=== PATIENT | female | born 1960 | race Caucasian/White ===

== ENCOUNTER 2022-06-13 01:22 | Inpatient (IN) ==
[2022-06-13 02:16] LABS: Mean Corpuscular Volume 83.1 fL (83.0-100.0); Mean Platelet Volume 9.6 fL (9.4-12.4)
[2022-06-13 02:17] LABS: Hematocrit 39.8 % (35.3-44.9); Mean Corpuscular HGB Conc 32.7 g/dL (31.6-35.5); Mean Corpuscular Hemoglobin 27.1 pg (28.0-33.3); Platelet Count 592 K/mcL (140-400); Red Blood Count 4.79 M/mcL (3.82-4.97); Red Cell Distribution Width 13.8 % (11.5-14.5)
[2022-06-13] MEDS ORDERED: Iopamidol - 370 500 ML MLS IVP ONE (02:17)
[2022-06-13 02:22] LABS: White Blood Count 34.5 K/mcL (4.3-11.1)
[2022-06-13] MEDS ORDERED: Azithromycin 500 MG in 0.9 % Sodium Chloride 250 ML IVPB ONE (02:24)
[2022-06-13] MEDS ORDERED: cefTRIAXone 2,000 MG in 0.9 % Sodium Chloride 20 ML IVP ONE (02:24)
[2022-06-13] MEDS ORDERED: *HR* FentaNYL (PF) 100 MCG/2 ML VIAL IVP ONE (02:31)
[2022-06-13 02:35] LABS: Eosinophils # 0.4 K/mcL (0.0-0.6); Lymphocytes # 2.1 K/mcL (0.6-4.6); Monocytes # 1.4 K/mcL (0.0-1.3); Neutrophils # 30.7 K/mcL (1.6-8.9)
[2022-06-13 02:36] LABS: Platelet Estimate Increased (Normal)
[2022-06-13] MEDS: 0.9 % Sodium Chloride 1,000 ML IVC SCH ×3 (02:36→05:47)
[2022-06-13 02:37] LABS: Albumin/Globulin Ratio 0.8 (1.1-2.2); Calcium 9.4 mg/dL (8.6-10.3); Globulin 3.6 g/dL (2.4-3.5); Potassium 3.4 mEq/L (3.5-5.1); Total Protein 6.6 g/dL (6.4-8.9); Troponin I 0.03 ng/mL (< 0.04)
[2022-06-13 02:41] LABS: INR 1.3; Prothrombin Time 14.5 Seconds (9.4-12.1)
[2022-06-13 02:43] LABS: Bilirubin,Direct 0.4 mg/dL (0.0-0.2); Bilirubin,Indirect 0.6 mg/dL (0.0-1.0); Magnesium 1.6 mg/dL (1.6-2.6)
[2022-06-13 02:44] LABS: Activated Partial Thrombo Time 26.3 Seconds (26.0-36.0)
[2022-06-13] MEDS ORDERED: Vancomycin 2,000 MG/520 ML IV.SOLN IVPB ONE (03:13)
[2022-06-13] MEDS ORDERED: Morphine Sulfate 2 MG/ML SYRINGE IVP ONE (04:16)
[2022-06-13 04:24] LABS: Bilirubin,Urine Negative (Negative); Blood,Urine Negative (Negative); Clarity,Urine Clear (Clear); Color,Urine Light-Orange (Yellow); Glucose,Urine (UA) Normal (Normal); Ketones,Urine Negative (Negative); Leukocyte Esterase,Urine Trace (Negative); Mucus,Urine Few per lpf (None-Few); Nitrite,Urine Negative (Negative); PH,Urine 6.5 pH Units (5.0-8.0); Protein,Urine 50 mg/dL (Neg-Trace); Specific Gravity,Urine > 1.030 (1.010-1.025); Squamous Epithelial Cell,Urine Moderate per hpf (None-Few); Urobilinogen,Urine Normal (Normal)
[2022-06-13 04:49] LABS: Adenovirus Not Detected (Not Detect); Bordetella Pertussis Not Detected (Not Detect); Chlamydophila pneumoniae Not Detected (Not Detect); Coronavirus 229E Not Detected (Not Detect); Coronavirus HKU1 Not Detected (Not Detect); Coronavirus NL63 Not Detected (Not Detect); Coronavirus OC43 Not Detected (Not Detect); Human Metapneumovirus Not Detected (Not Detect); Human Rhinovirus/Enterovirus Not Detected (Not Detect); Influenza A Subtype 2009 H1 Not Detected (Not Detect); Influenza B Not Detected (Not Detect); Mycoplasma pneumoniae Not Detected (Not Detect); Parainfluenza Virus 1 Not Detected (Not Detect); Parainfluenza Virus 2 Not Detected (Not Detect); Parainfluenza Virus 3 Not Detected (Not Detect); Parainfluenza Virus 4 Not Detected (Not Detect); Respiratory Syncytial Virus Not Detected (Not Detect); SARS-CoV-2 Not Detected (Not Detect)
[2022-06-13] MEDS ORDERED: MetroNIDAZOLE 500 MG/100 ML 500 MG/100 ML BAG IVPB ONE (05:19)
[2022-06-13] MEDS ORDERED: Naloxone 0.4 MG/ML INJ IVP PRN ×2 (05:22→18:45)
[2022-06-13] MEDS ORDERED: Melatonin 3 MG TABLET PO PRN ×2 (05:22→18:45)
[2022-06-13] MEDS ORDERED: Ondansetron 4 MG/2 ML VIAL IVP PRN ×5 (05:22→18:45)
[2022-06-13] MEDS ORDERED: Acetaminophen 325 MG TABLET PO PRN ×2 (06:00→18:45)
[2022-06-13] MEDS ORDERED: *HR* HYDROcodone/Acet 5/325 mg TABLET PO PRN (06:00)
[2022-06-13] MEDS ORDERED: Vancomycin 1,750 MG in 0.9 % Sodium Chloride 250 ML IVPB SCH (06:00)
[2022-06-13] MEDS ORDERED: *HR* OxyCODONE Immed Rel 5 MG TABLET PO PRN ×2 (06:00→18:45)
[2022-06-13] MEDS ORDERED: Gadolinium Contrast Agent (WT Based) IV PRN ×2 (07:27→18:45)
[2022-06-13] MEDS: Cefepime HCl 2,000 MG in 0.9 % Sodium Chloride 10 ML IVP SCH ×3 (08:32→23:22)
[2022-06-13] MEDS ORDERED: GADOBUTROL 30 MMOL/30 ML VIAL IVP ONE (09:43)
[2022-06-13] MEDS ORDERED: Ringers Solution, Lactated 1,000 ML IVC SCH ×2 (12:15→18:45)
[2022-06-13] MEDS: MetroNIDAZOLE 500 MG/100 ML 500 MG/100 ML BAG IVPB SCH ×4 (12:31→23:42)
[2022-06-13] MEDS ORDERED: *HR* HYDROmorphone PF 0.5 MG/0.5 ML SYRINGE IVP PRN ×2 (13:28→18:45)
[2022-06-13] MEDS ORDERED: Albuterol 2.5 MG/3 ML NEBULIZER IH PRN ×3 (13:28→18:45)
[2022-06-13] MEDS ORDERED: *HR* FentaNYL (PF) 100 MCG/2 ML VIAL IVP PRN ×2 (14:13→18:45)
[2022-06-13] MEDS ORDERED: *HR* FentaNYL (PF) 100 MCG/2 ML VIAL ONE ×2 (14:35→15:55)
[2022-06-13] MEDS ORDERED: *HR* Midazolam HCl 2 MG/2 ML VIAL ONE (14:35)
[2022-06-13] MEDS ORDERED: *HR* Propofol 200 MG/20 ML VIAL IVP ONE (14:35)
[2022-06-13] MEDS ORDERED: Ondansetron 4 MG/2 ML VIAL ONE (15:17)
[2022-06-13] MEDS ORDERED: Vancomycin 1,500 MG/265 ML IV.SOLN IVPB SCH (16:00)
[2022-06-13] MEDS ORDERED: DESMOPRESSIN ACETATE IVPB ONE ×2 (16:07→18:45)
[2022-06-13] MEDS ORDERED: SODIUM CHLORIDE 0.9% IVPB ONE ×2 (16:07→18:45)
[2022-06-13] MEDS ORDERED: Sugammadex Sodium 200 MG/2 ML VIAL IV ONE (16:34)
[2022-06-13] MEDS ORDERED: Promethazine 6.25 MG in Water for inj. (sterile) 20 ML IVPB PRN (17:28)
[2022-06-13] MEDS: Gabapentin 300 MG CAPSULE PO SCH (20:06)
[2022-06-13] MEDS: Vancomycin 1,500 MG/265 ML IV.SOLN IVPB SCH (20:08)
[2022-06-14] MEDS: Cefepime HCl 2,000 MG in 0.9 % Sodium Chloride 10 ML IVP SCH ×3 (02:42→20:48)
[2022-06-14] MEDS: MetroNIDAZOLE 500 MG/100 ML 500 MG/100 ML BAG IVPB SCH ×2 (05:46→11:39)
[2022-06-14] MEDS ORDERED: Azithromycin 500 MG in 0.9 % Sodium Chloride 250 ML IVPB SCH (06:00)
[2022-06-14 06:32] LABS: Basophils % 0.1 %; Eosinophils % 0.1 %; Hematocrit 26.5 % (35.3-44.9); Immature Granulocytes % 1.2 % (0-4); Lymphocytes # 1.3 K/mcL (0.6-4.6); Lymphocytes % 7.4 %; Mean Corpuscular HGB Conc 30.2 g/dL (31.6-35.5); Mean Corpuscular Hemoglobin 27.3 pg (28.0-33.3); Mean Platelet Volume 9.4 fL (9.4-12.4); Monocytes # 1.6 K/mcL (0.0-1.3); Monocytes % 9.3 %; Neutrophils # 14.1 K/mcL (1.6-8.9); Platelet Count 298 K/mcL (140-400); Red Blood Count 2.93 M/mcL (3.82-4.97); Red Cell Distribution Width 14.4 % (11.5-14.5); Segmented Neutrophils % 81.9 %; White Blood Count 17.3 K/mcL (4.3-11.1)
[2022-06-14 06:35] LABS: Mean Corpuscular Volume 90.4 fL (83.0-100.0)
[2022-06-14 07:23] LABS: Alanine Aminotransferase 14 Units/L (7-52); Albumin 1.6 g/dL (3.5-5.7); Albumin/Globulin Ratio 0.8 (1.1-2.2); Alkaline Phosphatase 45 Units/L (34-104); Aspartate Amino Transferase 8 Units/L (13-39); BUN/Creatinine Ratio 36 (6-26); Bilirubin,Total 0.3 mg/dL (0.3-1.0); Blood Urea Nitrogen 14 mg/dL (8-23); Calcium 5.9 mg/dL (8.6-10.3); Carbon Dioxide 19 mEq/L (23-29); Chloride 114 mEq/L (98-107); Glucose 85 mg/dL (70-105); Magnesium 1.3 mg/dL (1.6-2.6); Osmolality,Calculated 296 (280-300); Potassium 2.8 mEq/L (3.5-5.1); Sodium 143 mEq/L (136-145); Total Protein 3.6 g/dL (6.4-8.9)
[2022-06-14] MEDS: Gabapentin 300 MG CAPSULE PO SCH ×3 (08:16→20:48)
[2022-06-14] MEDS: Vancomycin 1,500 MG/265 ML IV.SOLN IVPB SCH (08:17)
[2022-06-14] MEDS ORDERED: Lidocaine -MPF 1% 5 ML AMPUL INFILT ONE (11:36)
[2022-06-14 13:07] LABS: BUN/Creatinine Ratio 27 (6-26); Blood Urea Nitrogen 16 mg/dL (8-23); Carbon Dioxide 26 mEq/L (23-29); Chloride 101 mEq/L (98-107); Glucose 112 mg/dL (70-105); Magnesium > 24.0 mg/dL (1.6-2.6); Osmolality,Calculated 274 (280-300); Phosphorous 2.9 mg/dL (2.7-4.5); Potassium 3.5 mEq/L (3.5-5.1); Sodium 131 mEq/L (136-145)
[2022-06-14] MEDS: *HR* HYDROcodone/Acet 5/325 mg TABLET PO PRN (15:52)
[2022-06-14 17:06] LABS: Alanine Aminotransferase 19 Units/L (7-52); Albumin 2.3 g/dL (3.5-5.7); Albumin/Globulin Ratio 0.7 (1.1-2.2); Alkaline Phosphatase 74 Units/L (34-104); Aspartate Amino Transferase 9 Units/L (13-39); BUN/Creatinine Ratio 28 (6-26); Bilirubin,Total 0.3 mg/dL (0.3-1.0); Blood Urea Nitrogen 16 mg/dL (8-23); Calcium 8.4 mg/dL (8.6-10.3); Carbon Dioxide 23 mEq/L (23-29); Chloride 103 mEq/L (98-107); Globulin 3.1 g/dL (2.4-3.5); Glucose 148 mg/dL (70-105); Osmolality,Calculated 278 (280-300); Potassium 3.7 mEq/L (3.5-5.1); Sodium 132 mEq/L (136-145); Total Protein 5.4 g/dL (6.4-8.9)
[2022-06-14] MEDS: metroNIDAZOLE 500 MG TABLET PO SCH (20:47)
[2022-06-14] MEDS: Lactobacillus 1 EACH CAP.SPRINK PO SCH (20:48)
[2022-06-15] MEDS: Cefepime HCl 2,000 MG in 0.9 % Sodium Chloride 10 ML IVP SCH ×3 (03:14→20:26)
[2022-06-15 03:43] LABS: Basophils % 0.2 %; Eosinophils # 0.4 K/mcL (0.0-0.6); Eosinophils % 2.2 %; Hemoglobin 9.1 g/dL (11.5-15.4); Immature Granulocytes % 1.3 % (0-4); Lymphocytes # 2.6 K/mcL (0.6-4.6); Lymphocytes % 14.4 %; Mean Corpuscular HGB Conc 31.4 g/dL (31.6-35.5); Mean Corpuscular Hemoglobin 27.4 pg (28.0-33.3); Mean Corpuscular Volume 87.3 fL (83.0-100.0); Mean Platelet Volume 9.7 fL (9.4-12.4); Monocytes # 1.2 K/mcL (0.0-1.3); Monocytes % 6.9 %; Neutrophils # 13.4 K/mcL (1.6-8.9); Platelet Count 363 K/mcL (140-400); Red Blood Count 3.32 M/mcL (3.82-4.97); Red Cell Distribution Width 14.3 % (11.5-14.5); White Blood Count 17.9 K/mcL (4.3-11.1)
[2022-06-15 04:04] LABS: Alanine Aminotransferase 15 Units/L (7-52); Albumin 2.2 g/dL (3.5-5.7); Albumin/Globulin Ratio 0.8 (1.1-2.2); Alkaline Phosphatase 69 Units/L (34-104); Aspartate Amino Transferase 9 Units/L (13-39); BUN/Creatinine Ratio 29 (6-26); Bilirubin,Total 0.4 mg/dL (0.3-1.0); Blood Urea Nitrogen 15 mg/dL (8-23); Calcium 8.4 mg/dL (8.6-10.3); Carbon Dioxide 26 mEq/L (23-29); Chloride 104 mEq/L (98-107); Globulin 2.9 g/dL (2.4-3.5); Glucose 119 mg/dL (70-105); Magnesium 2.1 mg/dL (1.6-2.6); Osmolality,Calculated 280 (280-300); Phosphorous 2.4 mg/dL (2.7-4.5); Potassium 3.8 mEq/L (3.5-5.1); Sodium 134 mEq/L (136-145); Total Protein 5.1 g/dL (6.4-8.9)
[2022-06-15] MEDS: metroNIDAZOLE 500 MG TABLET PO SCH ×3 (09:02→20:25)
[2022-06-15] MEDS: Gabapentin 300 MG CAPSULE PO SCH ×3 (09:02→20:26)
[2022-06-15] MEDS: Lactobacillus 1 EACH CAP.SPRINK PO SCH ×2 (09:03→20:25)
[2022-06-15] MEDS: *HR* HYDROcodone/Acet 5/325 mg TABLET PO PRN ×2 (13:38→21:52)
[2022-06-16] MEDS: Cefepime HCl 2,000 MG in 0.9 % Sodium Chloride 10 ML IVP SCH ×3 (02:22→20:07)
[2022-06-16 03:41] LABS: Basophils # 0.1 K/mcL (0.0-0.2); Basophils % 0.4 %; Eosinophils # 0.5 K/mcL (0.0-0.6); Hemoglobin 9.2 g/dL (11.5-15.4); Immature Granulocytes % 1.7 % (0-4); Lymphocytes % 20.1 %; Mean Corpuscular HGB Conc 31.7 g/dL (31.6-35.5); Mean Corpuscular Hemoglobin 27.5 pg (28.0-33.3); Mean Corpuscular Volume 86.8 fL (83.0-100.0); Mean Platelet Volume 9.5 fL (9.4-12.4); Monocytes # 1.1 K/mcL (0.0-1.3); Monocytes % 7.5 %; Neutrophils # 10.2 K/mcL (1.6-8.9); Platelet Count 377 K/mcL (140-400); Red Blood Count 3.34 M/mcL (3.82-4.97); Red Cell Distribution Width 14.2 % (11.5-14.5); Segmented Neutrophils % 67.3 %; White Blood Count 15.1 K/mcL (4.3-11.1)
[2022-06-16 04:01] LABS: Alanine Aminotransferase 14 Units/L (7-52); Albumin 2.3 g/dL (3.5-5.7); Albumin/Globulin Ratio 0.7 (1.1-2.2); Alkaline Phosphatase 73 Units/L (34-104); Aspartate Amino Transferase 8 Units/L (13-39); BUN/Creatinine Ratio 28 (6-26); Bilirubin,Total 0.2 mg/dL (0.3-1.0); Blood Urea Nitrogen 17 mg/dL (8-23); Calcium 8.4 mg/dL (8.6-10.3); Carbon Dioxide 27 mEq/L (23-29); Chloride 104 mEq/L (98-107); Globulin 3.1 g/dL (2.4-3.5); Glucose 118 mg/dL (70-105); Osmolality,Calculated 283 (280-300); Potassium 3.7 mEq/L (3.5-5.1); Sodium 135 mEq/L (136-145); Total Protein 5.4 g/dL (6.4-8.9)
[2022-06-16] MEDS: *HR* HYDROcodone/Acet 5/325 mg TABLET PO PRN ×2 (04:26→20:07)
[2022-06-16] MEDS: Gabapentin 300 MG CAPSULE PO SCH ×3 (08:48→20:07)
[2022-06-16] MEDS: Lactobacillus 1 EACH CAP.SPRINK PO SCH ×2 (08:48→20:07)
[2022-06-16] MEDS: metroNIDAZOLE 500 MG TABLET PO SCH ×3 (08:48→20:07)
[2022-06-17] MEDS: Cefepime HCl 2,000 MG in 0.9 % Sodium Chloride 10 ML IVP SCH ×2 (02:41→12:23)
[2022-06-17 03:53] LABS: Basophils # 0.1 K/mcL (0.0-0.2); Basophils % 0.7 %; Eosinophils # 0.6 K/mcL (0.0-0.6); Eosinophils % 4.1 %; Hematocrit 30.2 % (35.3-44.9); Hemoglobin 9.2 g/dL (11.5-15.4); Immature Granulocytes % 3.2 % (0-4); Lymphocytes # 3.2 K/mcL (0.6-4.6); Lymphocytes % 22.5 %; Mean Corpuscular HGB Conc 30.5 g/dL (31.6-35.5); Mean Corpuscular Hemoglobin 26.5 pg (28.0-33.3); Mean Platelet Volume 9.3 fL (9.4-12.4); Monocytes # 1.4 K/mcL (0.0-1.3); Monocytes % 9.6 %; Neutrophils # 8.6 K/mcL (1.6-8.9); Platelet Count 372 K/mcL (140-400); Red Blood Count 3.47 M/mcL (3.82-4.97); Red Cell Distribution Width 14.3 % (11.5-14.5); Segmented Neutrophils % 59.9 %; White Blood Count 14.2 K/mcL (4.3-11.1)
[2022-06-17] MEDS: *HR* HYDROcodone/Acet 5/325 mg TABLET PO PRN ×2 (03:55→12:19)
[2022-06-17 04:12] LABS: Alanine Aminotransferase 15 Units/L (7-52); Albumin 2.3 g/dL (3.5-5.7); Albumin/Globulin Ratio 0.7 (1.1-2.2); Alkaline Phosphatase 67 Units/L (34-104); Aspartate Amino Transferase 11 Units/L (13-39); BUN/Creatinine Ratio 24 (6-26); Bilirubin,Total 0.2 mg/dL (0.3-1.0); Blood Urea Nitrogen 12 mg/dL (8-23); Calcium 8.2 mg/dL (8.6-10.3); Carbon Dioxide 25 mEq/L (23-29); Chloride 106 mEq/L (98-107); Globulin 3.2 g/dL (2.4-3.5); Glucose 102 mg/dL (70-105); Osmolality,Calculated 282 (280-300); Potassium 3.9 mEq/L (3.5-5.1); Sodium 136 mEq/L (136-145); Total Protein 5.5 g/dL (6.4-8.9)
[2022-06-17] MEDS: metroNIDAZOLE 500 MG TABLET PO SCH ×3 (08:02→20:15)
[2022-06-17] MEDS: Gabapentin 300 MG CAPSULE PO SCH ×3 (08:02→20:15)
[2022-06-17] MEDS: Lactobacillus 1 EACH CAP.SPRINK PO SCH ×2 (08:03→20:15)
[2022-06-17] MEDS: Sucralfate 1 GM TABLET PO SCH ×2 (08:40→20:15)
[2022-06-17] MEDS: FLUoxetine 20 MG CAPSULE PO SCH (08:41)
[2022-06-17] MEDS: Budesonide/Formoterol 160/4.5 1 PUFF INH IH SCH ×2 (10:25→20:19)
[2022-06-17] MEDS: cefTRIAXone 2,000 MG in 0.9 % Sodium Chloride 20 ML IVP SCH (13:10)
[2022-06-18] MEDS: *HR* HYDROcodone/Acet 5/325 mg TABLET PO PRN ×2 (02:31→09:29)
[2022-06-18 03:22] LABS: Basophils # 0.1 K/mcL (0.0-0.2); Basophils % 0.6 %; Eosinophils # 0.6 K/mcL (0.0-0.6); Eosinophils % 3.7 %; Hemoglobin 9.7 g/dL (11.5-15.4); Immature Granulocytes % 3.6 % (0-4); Lymphocytes # 2.8 K/mcL (0.6-4.6); Lymphocytes % 18.3 %; Mean Corpuscular HGB Conc 32.3 g/dL (31.6-35.5); Mean Corpuscular Hemoglobin 27.3 pg (28.0-33.3); Mean Corpuscular Volume 84.5 fL (83.0-100.0); Mean Platelet Volume 9.2 fL (9.4-12.4); Monocytes # 1.4 K/mcL (0.0-1.3); Monocytes % 8.8 %; Neutrophils # 10.1 K/mcL (1.6-8.9); Platelet Count 377 K/mcL (140-400); Red Blood Count 3.55 M/mcL (3.82-4.97); Red Cell Distribution Width 14.4 % (11.5-14.5); White Blood Count 15.5 K/mcL (4.3-11.1)
[2022-06-18 03:49] LABS: Alanine Aminotransferase 17 Units/L (7-52); Albumin 2.5 g/dL (3.5-5.7); Albumin/Globulin Ratio 0.8 (1.1-2.2); Alkaline Phosphatase 71 Units/L (34-104); Aspartate Amino Transferase 13 Units/L (13-39); BUN/Creatinine Ratio 19 (6-26); Bilirubin,Total 0.3 mg/dL (0.3-1.0); Blood Urea Nitrogen 10 mg/dL (8-23); Calcium 8.5 mg/dL (8.6-10.3); Carbon Dioxide 25 mEq/L (23-29); Chloride 103 mEq/L (98-107); Globulin 3.2 g/dL (2.4-3.5); Glucose 104 mg/dL (70-105); Osmolality,Calculated 281 (280-300); Potassium 3.8 mEq/L (3.5-5.1); Sodium 136 mEq/L (136-145); Total Protein 5.7 g/dL (6.4-8.9)
[2022-06-18 06:58] VITALS: TEMP 98.3
[2022-06-18] MEDS: Budesonide/Formoterol 160/4.5 1 PUFF INH IH SCH (07:36)
[2022-06-18] MEDS: Sucralfate 1 GM TABLET PO SCH (08:32)
[2022-06-18] MEDS: cefTRIAXone 2,000 MG in 0.9 % Sodium Chloride 20 ML IVP SCH (08:32)
[2022-06-18] MEDS: FLUoxetine 20 MG CAPSULE PO SCH (08:32)
[2022-06-18] MEDS: metroNIDAZOLE 500 MG TABLET PO SCH ×2 (08:32→14:44)
[2022-06-18] MEDS: Lactobacillus 1 EACH CAP.SPRINK PO SCH (08:32)
[2022-06-18] MEDS: Gabapentin 300 MG CAPSULE PO SCH ×2 (08:32→14:44)
[2022-06-18 11:05] VITALS: BP 115/74; O2SAT 94
[2022-06-18] MEDS ORDERED: *HR* Alteplase (Cathflo) 2 MG VIAL IVP ONE (11:06)
[2022-06-18 11:12] LABS: Magnesium 1.8 mg/dL (1.6-2.6)
[2022-06-18 16:04] VITALS: PULSE 90
[2022-06-18] MEDS ORDERED: Nystatin SUSP 5 ML UD.LIQ PO SCH (17:00)
== END 2022-06-18 16:52 | disposition home health service (06) | DRG 853 ==
LOC: EMEROOARM 01:22 → 2ANU 07:44 → SUATTDRO 07:44 → 2ANU 09:35 → 2NNU 17:22
PROVIDERS: ADMIT Internal Medicine; ATTEND Student in an Organized Health Care Education/Training Program